=== PATIENT | male | born 1985 | race Caucasian/White ===

== ENCOUNTER 2021-04-28 10:00 | Emergency (ER) | payer BC, SELFPAY ==
--- NOTE | 2021-04-28 10:44 | RAD REPORT ---
EXAM DESCRIPTION: RAD - Chest Single View - 04/28/2021 10:33 am CLINICAL HISTORY: CHEST PAIN Chest pain. COMPARISON: Chest Single View dated 01/20/2016; CHEST PA AND LAT 2 VIEW dated 12/22/2013; CHEST SINGLE VIEW dated 01/21/2012 FINDINGS: Portable technique limits examination quality. The lungs are grossly clear. The heart is normal in size. No displaced fractures. IMPRESSION: No acute intrathoracic process suspected.
[2021-04-28 11:21] LABS: Absolute Lymphocytes (CBC) 1.3 K/uL (0.7-4.9); Lymphocytes % 16.6 % (15.3-44.8); MPV 9.6 fL (7.6-11.3); RBC Red Blood Cell Count 4.62 M/uL (4.33-5.43)
[2021-04-28 11:33] LABS: Protime INR 1.18
[2021-04-28 11:51] LABS: ALT/SGPT 33 U/L (12-78); Albumin 3.6 g/dL (3.4-5.0); Alkaline Phosphatase 94 U/L (45-117); BUN Blood Urea Nitrogen 12 mg/dL (7-18); Bicarbonate 26 mmol/L (21-32); Bilirubin Total 0.6 mg/dL (0.2-1.0); Glucose Level 101 mg/dL (74-106); NT PRO-BNP 32 pg/mL (<125); Protein, Total 7.6 g/dL (6.4-8.2); Sodium Level 136 mmol/L (136-145)
[2021-04-28 12:00] LABS: AST/SGOT 26 U/L (15-37); Bilirubin Direct < 0.1 mg/dL (0-0.2); Magnesium 2.3 mg/dL (1.8-2.4); Potassium 4.4 mmol/L (3.5-5.1); Troponin High Sensitivity < 3.00 pg/mL (<58.9)
--- NOTE | 2021-04-28 12:10 | EDPHYS ---
Physician Documentation [facility] Name: Tyrell Torres Age: 35 yrs Sex: Male : 1985 Arrival Date: 04/28/2021 Time: 10:03 Bed 14 Private MD: ED Physician Stanley Fierro HPI: 04/28 10:26 This 35 yrs old Male presents to ER via Ambulatory with complaints of Chest Pain. kb 10:26 The patient or guardian reports chest pain that is located primarily in the anterior kb chest wall, left. The pain does not radiate. Associated signs and symptoms: The patient has no apparent associated signs or symptoms. The chest pain is described as aching. Duration: The patient or guardian reports a single episode, that is still ongoing. Modifying factors: The symptoms are alleviated by nothing. the symptoms are aggravated by nothing. Severity of pain: At its worst the pain was moderate in the emergency department the pain is unchanged. The patient has not experienced similar symptoms in the past. The patient has not recently seen a physician. Pt reports chest pain that began while at work at approx 0730. States pain is to left chest. Denies previous episodes. . Historical: - Allergies: 10:11 No Known Allergies; ab2 - Home Meds: 10:11 lisinopril 5 mg Oral tab 1 tab once daily [Active]; buspirone 5 mg Oral tab 1 tab 2 ab2 times per day [Active]; - PMHx: 10:11 Hypertensive disorder; Anxiety; ab2 - PSHx: 10:11 Appendectomy; ab2 - Immunization history:: Adult Immunizations up to date. - Social history:: Smoking status: Patient denies any tobacco usage or history of. ROS: 10:25 Constitutional: Negative for fever, chills, and weight loss. kb 10:25 Cardiovascular: Positive for chest pain, Negative for edema, orthopnea, palpitations, paroxysmal nocturnal dyspnea. 10:25 All other systems are negative. Exam: 10:23 Constitutional: This is a well developed, well nourished patient who is awake, alert, kb and in no acute distress. Head/Face: Normocephalic, atraumatic. ENT: Moist Mucous membranes Cardiovascular: Regular rate and rhythm with a normal S1 and S2. No gallops, murmurs, or rubs. No pulse deficits. Respiratory: Respirations even and unlabored. No increased work of breathing. Talking in full sentences Skin: Warm, dry with normal turgor. Normal color. MS/ Extremity: Pulses equal, no cyanosis. Neurovascular intact. Full, normal range of motion. Neuro: Awake and alert, GCS 15, oriented to person, place, time, and situation. Moves all extremities. Normal gait. Psych: Awake, alert, with orientation to person, place and time. Behavior, mood, and affect are within normal limits. 10:23 ECG was reviewed by the Attending Physician. Vital Signs: 10:08 BP 138 / 93; Pulse 85; Resp 22; Temp 98.0(O); Pulse Ox 100% on R/A; Weight 108.86 kg; ab2 Height 6 ft. 0 in. (182.88 cm); Pain 3/10; 10:15 BP 127 / 73; Pulse 83; Resp 16 S; Pulse Ox 99% on R/A; Pain 2/10; jg9 11:30 BP 128 / 84; Pulse 88; Resp 20 S; Pulse Ox 98% ; Pain 2/10; jg9 12:00 BP 129 / 75 (art line/); Pulse 73; Resp 20 S; Pulse Ox 98% on R/A; jg9 10:08 Body Mass Index 32.55 (108.86 kg, 182.88 cm) ab2 MDM: 10:11 Patient medically screened. 10:24 Data reviewed: vital signs, nurses notes. Data interpreted: Pulse oximetry: on room air kb is 100 %. Interpretation: normal. 12:08 Counseling: I had a detailed discussion with the patient and/or guardian regarding: the kb historical points, exam findings, and any diagnostic results supporting the discharge/admit diagnosis, lab results, radiology results, the need for outpatient follow up, a linux developer, a family practitioner, to return to the emergency department if symptoms worsen or persist or if there are any questions or concerns that arise at home. 04/28 10:11 Order name: Basic Metabolic Panel kb 04/28 10:11 Order name: CBC with Diff kb 04/28 10:11 Order name: LFT's; Complete Time: 12:07 kb 04/28 10:11 Order name: Magnesium; Complete Time: 12:07 kb 04/28 10:11 Order name: NT PRO-BNP; Complete Time: 12:07 kb 04/28 10:11 Order name: PT-INR; Complete Time: 11:34 kb 04/28 10:11 Order name: Troponin HS; Complete Time: 12:07 kb 04/28 10:11 Order name: XRAY Chest (1 view); Complete Time: 10:49 kb 04/28 10:11 Order name: EKG; Complete Time: 10:12 kb 04/28 10:11 Order name: Cardiac monitoring; Complete Time: 10:21 kb 04/28 10:11 Order name: EKG - Nurse/Tech; Complete Time: 10:21 kb 04/28 10:11 Order name: Labs collected and sent; Complete Time: 10:48 kb 04/28 10:11 Order name: Basic Metabolic Panel; Complete Time: 12:07 EDMS 04/28 10:11 Order name: O2 Sat Monitoring; Complete Time: 10:21 kb EC:23 Rate is 77 beats/min. Rhythm is regular. QRS [place] is Normal. FL interval is normal at kb 112 msec. QRS interval is normal at 90 msec. QT interval is normal at 350 msec. Administered Medications: No medications were administered Disposition: 19:34 Co-signature as Attending PhysicianStanley DO I agree with the assessment and ms3 plan of care. Disposition Summary: 04/28/21 12:09 Discharge Ordered Location: Home kb Condition: Stable kb Diagnosis - Chest pain, unspecified kb Followup: kb - With: Emergency Department - When: As needed - Reason: Worsening of condition Followup: kb - With: Private Physician - When: 2 - 3 days - Reason: Recheck today's complaints, Continuance of care, Re-evaluation by your physician Discharge Instructions: - Discharge Summary Sheet kb - Nonspecific Chest Pain, Adult, [id number] kb - Form - Excuse from Work, School, or Physical Activity ld1 Forms: - Medication Reconciliation Form kb - Thank You Letter kb - Antibiotic Education kb - Prescription Opioid Use kb Signatures: Dispatcher [employer] Consuelo Aviles FNP-C FNP-Ckb Sims, Marcus, DO DO ms3 Betito Chu ab2 Corrections: (The following items were deleted from the chart) 20:08 19:34 Co-signature as Attending PhysicianConsuelo I agree with the ms3 assessment and plan of care. ms3
--- NOTE | 2021-04-28 12:10 | ER ---
Nurse's Notes [facility] Name: Tyrell Torres Age: 35 yrs Sex: Male : 1985 Arrival Date: 04/28/2021 Time: 10:03 Bed 14 Private MD: Diagnosis: Chest pain, unspecified Presentation: 04/28 10:08 Chief complaint: Patient states: Pt c/o chest pain on the left side that radiates under ab2 left breast. Pt states pain began at work around 0730 this morning. Chief complaint:. Coronavirus screen: Vaccine status: Patient reports being unvaccinated. Client denies travel out of the [place] in the last 14 days. At this time, the client does not indicate any symptoms associated with coronavirus-19. Ebola Screen: Patient negative for fever greater than or equal to 101.5 degrees Fahrenheit, and additional compatible Ebola Virus Disease symptoms Patient denies exposure to infectious person. Patient denies travel to an Ebola-affected area in the 21 days before illness onset. No symptoms or risks identified at this time. Initial Sepsis Screen: Does the patient meet any 2 criteria? No. Patient's initial sepsis screen is negative. Does the patient have a suspected source of infection? No. Patient's initial sepsis screen is negative. Risk Assessment: Do you want to hurt yourself or someone else? Patient reports no desire to harm self or others. Onset of symptoms is unknown. 10:08 Method Of Arrival: Ambulatory ab2 10:08 Acuity: JULIUS 3 ab2 Triage Assessment: 10:12 General: Appears in no apparent distress. comfortable, Behavior is calm, cooperative, ab2 appropriate for age. Pain: Complains of pain in left clavicle, anterior aspect of left upper chest and left breast Pain radiates to left breast. Cardiovascular: Reports chest pain. Historical: - Allergies: 10:11 No Known Allergies; ab2 - Home Meds: 10:11 lisinopril 5 mg Oral tab 1 tab once daily [Active]; buspirone 5 mg Oral tab 1 tab 2 ab2 times per day [Active]; - PMHx: 10:11 Hypertensive disorder; Anxiety; ab2 - PSHx: 10:11 Appendectomy; ab2 - Immunization history:: Adult Immunizations up to date. - Social history:: Smoking status: Patient denies any tobacco usage or history of. Screenin:49 Abuse screen: Denies threats or abuse. Denies injuries from another. Nutritional jg9 screening: On weight loss diet. Tuberculosis screening: No symptoms or risk factors identified. Fall Risk None identified. Assessment: 10:10 Pain: Complains of pain in chest Pain began 4 hours ago. jg9 11:38 Reassessment: No changes from previously documented assessment. Pain: Complains of pain jg9 in chest Pain currently is 2 out of 10 on a pain scale. Vital Signs: 10:08 BP 138 / 93; Pulse 85; Resp 22; Temp 98.0(O); Pulse Ox 100% on R/A; Weight 108.86 kg; ab2 Height 6 ft. 0 in. (182.88 cm); Pain 3/10; 10:15 BP 127 / 73; Pulse 83; Resp 16 S; Pulse Ox 99% on R/A; Pain 2/10; jg9 11:30 BP 128 / 84; Pulse 88; Resp 20 S; Pulse Ox 98% ; Pain 2/10; jg9 12:00 BP 129 / 75 (art line/); Pulse 73; Resp 20 S; Pulse Ox 98% on R/A; jg9 10:08 Body Mass Index 32.55 (108.86 kg, 182.88 cm) ab2 ED Course: 10:03 Patient arrived in ED. kz 10:11 Consuelo Quigley FNP-C is [facility]. kb 10:11 Stanley Fierro DO is Attending Physician. kb 10:11 Triage completed. ab2 10:16 Cindy Aguilar, RN is Primary Nurse. jg9 10:20 Missed attempt(s): 20 gauge in right antecubital area. jg9 10:33 XRAY Chest (1 view) In Process Unspecified. EDMS 10:48 Basic Metabolic Panel Sent. jg9 10:50 Patient maintains SpO2 saturation greater than 95% on room air. jg9 10:50 Arm band placed on left wrist. jg9 10:50 Patient has correct armband on for positive identification. Bed in low position. Call jg9 light in reach. Side rails up X 1. school lunch monitor on. 11:11 Inserted saline lock: 20 gauge in right hand, using aseptic technique. Blood collected. jg9 11:38 No apparent distress. standing in room due to be being so uncomfortable. jg9 11:44 patient reports pain just to the left of iv site not near insertion that was mad worse jg9 by bp cuff-patient wants line out-this nurse advised him that he may still need it and if so would he be ok with my sticking him again-he was ok with that. 12:18 No provider procedures requiring assistance completed. jg9 Administered Medications: No medications were administered Outcome: 12:09 Discharge ordered by . meagan 12:18 Discharged to home ambulatory. jg9 12:18 Condition: stable 12:18 Discharge instructions given to patient, Instructed on discharge instructions, follow up and referral plans. Demonstrated understanding of instructions, follow-up care. 12:29 Patient left the ED. jg9 Signatures: Dispatcher [employer] EDConsuelo Drummond, RUSSIAN LANGUAGE INSTRUCTOR-C RUSSIAN LANGUAGE INSTRUCTOR-Cindy Hays, RN RN jg9 Betito Chu Kelly kz Corrections: (The following items were deleted from the chart) 10:51 10:50 Missed attempt(s): 20 gauge in right antecubital area. jg9 jg9
[2021-04-28 12:32] LABS: Blood Morphology Comment NOT SEEN (NOT SEEN); Platelet Estimate ADEQ; White Blood Cell Scan OK (OK)
[2021-04-28 12:54] VITALS: TEMP 98
[2021-04-28 12:57] VITALS: O2SAT 98
[2021-04-28 12:58] VITALS: BP 129/75
--- NOTE | 2021-04-29 13:12 | EKG ---
Test Date: 2021-04-28 Test Time: 10:21:46 Rivet Heater: MEASUREMENT RESULTS: Intervals: Rate: 77 AL: 112 QRSD: 90 QT: 350 QTc: 396 Stacy: P: 28 AL: 112 QRS: 7 T: 39 INTERPRETIVE STATEMENTS: Normal sinus rhythm Normal ECG Compared to ECG 01/20/2016 07:51:50 Left ventricular hypertrophy no longer present Electronically Signed On 04-29-21 13:08:23 PIN FEATHER MACHINE OPERATOR by Robert Urbina
== END 2021-04-28 12:29 | disposition home or self-care (01) ==
LOC: ER 10:00
DX: R07.9 Chest pain, unspecified (principal); I10 Essential (primary) hypertension; F41.9 Anxiety disorder, unspecified
CPT/HCPCS: 36415; 71045; 80048; 80076; 83735; 83880; 84484; 85025; 85610; 93005; 99285

== ENCOUNTER 2021-08-30 21:26 | Emergency (ER) | payer SELFPAY ==
[2021-08-30] MEDS ORDERED: IBUPROFEN 400 MG TAB ONE (23:19)
--- NOTE | 2021-08-31 00:15 | EDPHYS ---
Physician Documentation [facility] Name: Tyrell Torres Age: 36 yrs Sex: Male : 1985 Arrival Date: 08/30/2021 Time: 21:30 Bed 28 Private MD: ED Physician Suraj Caban HPI: 08/30 23:00 This 36 yrs old Male presents to ER via Ambulatory with complaints of Knee Pain. cp 23:00 The patient presents with pain, that is acute, swelling, tenderness. The complaints cp affect the lateral aspect upper left knee. Context: resulted from an unknown cause, the patient can fully bear weight, the patient is able to ambulate, with mild difficulty, Problem is a result from a previous injury: No. Onset: The symptoms/episode began/occurred today. Associated signs and symptoms: The patient has no apparent associated signs or symptoms. Historical: - Allergies: 21:42 No Known Allergies; eh3 - Home Meds: 21:39 lisinopril 10 mg oral tab 1 tab once daily for hypertension [Active]; eh3 21:42 buspirone 5 mg Oral tab 1 tab 2 times per day [Active]; eh3 - PMHx: 21:42 Hypertensive disorder; Anxiety; eh3 - PSHx: 21:42 Appendectomy; eh3 - Immunization history:: Adult Immunizations up to date, Client reports having NOT received the Covid vaccine. - Social history:: Smoking status: Patient denies any tobacco usage or history of. Patient/guardian denies using alcohol, street drugs, tobacco products. ROS: 23:10 MS/extremity: Positive for pain, swelling, tenderness, of the lateral aspect left upper cp knee. 23:10 Constitutional: Negative for body aches, chills, fever, poor PO intake. cp 23:10 Eyes: Negative for injury, pain, redness, and discharge. cp 23:10 Neck: Negative for pain with movement, pain at rest. 23:10 Cardiovascular: Negative for chest pain, palpitations. 23:10 Respiratory: Negative for cough, shortness of breath, wheezing. 23:10 Abdomen/GI: Negative for abdominal pain. 23:10 Back: Negative for pain at rest, pain with movement. 23:10 All other systems are negative. Exam: 23:15 Constitutional: The patient appears in no acute distress, alert, awake, non-toxic, well cp developed, well nourished, obese. 23:15 Head/Face: Normocephalic, atraumatic. cp 23:15 Neck: ROM/movement: is normal, is supple, without pain, no range of motions limitations. 23:15 Back: pain, is absent, ROM is normal. 23:15 Musculoskeletal/extremity: Extremities: noted in the left knee: mild swelling and tenderness noted popliteal and upper lateral left knee, ROM: full active range of motion, in the left knee, Perfusion: the extremity is normally perfused throughout, Sensation intact. Vital Signs: 21:32 BP 148 / 91; Pulse 86; Resp 18; Temp 98.3; Pulse Ox 100% on R/A; Weight 157.85 kg; eh3 Height 6 ft. 0 in. (182.88 cm); Pain 08/28; 08/31 00:21 BP 139 / 88; Pulse 82; Resp 17; Pulse Ox 100% on R/A; sm5 08/30 21:32 Body Mass Index 47.20 (157.85 kg, 182.88 cm) 3 MDM: 08/30 22:43 Patient medically screened. cp 08/31 00:15 Data reviewed: vital signs, nurses notes, radiologic studies, plain films, ultrasound. cp 00:15 Counseling: I had a detailed discussion with the patient and/or guardian regarding: the cp historical points, exam findings, and any diagnostic results supporting the discharge/admit diagnosis, radiology results, the need for outpatient follow up, a orthopedic surgeon, to return to the emergency department if symptoms worsen or persist or if there are any questions or concerns that arise at home. 08/30 22:49 Order name: XRAY Knee LEFT 3 view cp 08/30 22:49 Order name: US Extremity Venous Unilateral Ltd cp 08/31 00:14 Order name: Alonzo wrap-joint; Complete Time: 00:19 cp Administered Medications: 08/30 23:14 Drug: Ibuprofen 800 mg Route: PO; bb 08/31 00:22 Follow up: Response: No adverse reaction [facility] Disposition Summary: 08/31/21 00:15 Discharge Ordered Location: Home cp Problem: new cp Symptoms: have improved cp Condition: Stable cp Diagnosis - Pain in left knee cp Followup: cp - With: Private Physician - When: 2 - 3 days - Reason: Worsening of condition Discharge Instructions: - Discharge Summary Sheet cp - Elastic Bandage and RICE Therapy cp - Acute Knee Pain, Adult cp Forms: - Medication Reconciliation Form cp - Thank You Letter cp - Antibiotic Education cp - Prescription Opioid Use cp - Work release form 5 Prescriptions: - Ibuprofen 800 mg Oral Tablet - take 1 tablet by ORAL route every 8 hours As needed take with food; 30 tablet; cp Refills: 0, Product Selection Permitted Signatures: Dispatcher [employer] Stephanie Gould RN RN Kranthi Combs PA PA cp Hall, Erin [facility] Dominique Mariano RN 5 Corrections: (The following items were deleted from the chart) 08/30 21:41 21:39 PMHx: Hypertensive disorder; [place] [id number] 21:41 21:39 PMHx: Anxiety; [place] [id number] 21:41 21:39 PSHx: Appendectomy; [place] [id number] 21:44 21:42 PMHx: None; [place] [id number]
--- NOTE | 2021-08-31 00:15 | ER ---
Nurse's Notes [facility] Name: Tyerll Torres Age: 36 yrs Sex: Male : 1985 Arrival Date: 08/30/2021 Time: 21:30 Bed 28 Private MD: Diagnosis: Pain in left knee Presentation: 08/30 21:32 Chief complaint: Patient states: left knee swollen, radiating pain down to foot. Onset eh3 at 1999, unaware of cause. Coronavirus screen: Vaccine status: Patient reports being unvaccinated. Ebola Screen: No symptoms or risks identified at this time. Initial Sepsis Screen: Does the patient meet any 2 criteria? No. Patient's initial sepsis screen is negative. Does the patient have a suspected source of infection? No. Patient's initial sepsis screen is negative. Risk Assessment: Do you want to hurt yourself or someone else? Patient reports no desire to harm self or others. Onset of symptoms was August 30, 2021 at 20:00. 21:32 Method Of Arrival: Ambulatory eh3 21:32 Acuity: JULIUS 3 eh3 Triage Assessment: 21:41 General: Appears in no apparent distress. comfortable, Behavior is calm, cooperative, eh3 appropriate for age. Pain: Complains of pain in left knee, left martinez, anterior aspect of left ankle and dorsum of left foot Pain radiates to left leg. Historical: - Allergies: 21:42 No Known Allergies; eh3 - Home Meds: 21:39 lisinopril 10 mg oral tab 1 tab once daily for hypertension [Active]; eh3 21:42 buspirone 5 mg Oral tab 1 tab 2 times per day [Active]; eh3 - PMHx: 21:42 Hypertensive disorder; Anxiety; eh3 - PSHx: 21:42 Appendectomy; eh3 - Immunization history:: Adult Immunizations up to date, Client reports having NOT received the Covid vaccine. - Social history:: Smoking status: Patient denies any tobacco usage or history of. Patient/guardian denies using alcohol, street drugs, tobacco products. Screenin:08 Abuse screen: Denies threats or abuse. Nutritional screening: No deficits noted. bb Tuberculosis screening: No symptoms or risk factors identified. Fall Risk None identified. Assessment: 22:08 Reassessment: No changes from previously documented assessment. Patient is alert, bb oriented x 3, equal unlabored respirations, skin warm/dry/pink. 08/31 00:21 Reassessment: Patient and/or family updated on plan of care and expected duration. Pain sm5 level reassessed. Vital Signs: 08/30 21:32 BP 148 / 91; Pulse 86; Resp 18; Temp 98.3; Pulse Ox 100% on R/A; Weight 157.85 kg; 3 Height 6 ft. 0 in. (182.88 cm); Pain 7/10; 08/31 00:21 BP 139 / 88; Pulse 82; Resp 17; Pulse Ox 100% on R/A; sm5 08/30 21:32 Body Mass Index 47.20 (157.85 kg, 182.88 cm) [facility] ED Course: 08/30 21:30 Patient arrived in ED. ja2 21:38 Triage completed. 3 21:41 Arm band placed on left wrist. 3 22:08 Kranthi Green PA is PHCP. cp 22:08 Suraj Caban MD is Attending Physician. cp 22:08 Patient has correct armband on for positive identification. Bed in low position. Call bb light in reach. 22:09 Stephanie Artis RN is Primary Nurse. bb 23:12 XRAY Knee LEFT 3 view In Process Unspecified. EDMS 08/31 00:02 US Extremity Venous Unilateral Ltd In Process Unspecified. EDMS 00:21 No provider procedures requiring assistance completed. Patient did not have IV access sm5 during this emergency room visit. Alonzo wrap to left knee. Administered Medications: 08/30 23:14 Drug: Ibuprofen 800 mg Route: PO; bb 08/31 00:22 Follow up: Response: No adverse reaction sm5 Medication: 00:22 VIS not applicable for this client. sm5 Outcome: 00:15 Discharge ordered by MD. cp 00:22 Discharged to home ambulatory, with significant other. sm5 00:22 Condition: stable 00:22 Discharge instructions given to patient, significant other, Instructed on discharge instructions, follow up and referral plans. medication usage, Demonstrated understanding of instructions, follow-up care, medications, Prescriptions given X 1. 00:22 Patient left the ED. sm5 Signatures: Dispatcher [employer] [facility] Stephanie Artis RN RN bb Page, Corey, PA PA cp Alexander, Jessica [facility] García, Dominique, RN RN sm5 Susanna Kc eh3 Corrections: (The following items were deleted from the chart) 08/30 21: 21:39 PMHx: Hypertensive disorder; eh3 eh3 21:39 PMHx: Anxiety; eh3 eh3 21:39 PSHx: Appendectomy; eh3 eh3 21:42 PMHx: None; eh3 eh3
[2021-08-31 00:35] VITALS: TEMP 98.3; O2SAT 100
[2021-08-31 00:38] VITALS: BP 139/88
--- NOTE | 2021-08-31 11:29 | RAD REPORT ---
EXAM DESCRIPTION: US - Extremity Venous Uni Ltd - 08/31/2021 1:54 am CLINICAL HISTORY: Pain. COMPARISON: None. TECHNIQUE: Grayscale, color Doppler, duplex Doppler, spectral Doppler images and analysis with compr ession and augmentation of left lower extremity veins. FINDINGS: Left common femoral, greater saphenous, femoral, deep (profunda) femoral, popliteal, poste rior tibial veins unremarkable without evidence of clot. IMPRESSION: No sonographic evidence of left lower extremity DVT. Electronically signed by: Mehdi Scales MD 08/31/2021 12:26 AM CDT Due to temporary technical issues with the PACS/Fluency reporting system, reports are being signed by the in house radiologists without review as a courtesy to insure prompt reporting. The interpreting radiologist is fully responsible for the content of the report.
--- NOTE | 2021-08-31 12:21 | RAD REPORT ---
EXAM DESCRIPTION: RAD - Knee Left 3 View - 08/30/2021 11:10 pm CLINICAL HISTORY: PAIN. COMPARISON: None. TECHNIQUE: Three views of the left knee: AP, oblique, and lateral radiographs. FINDINGS: No acute osseous abnormality is identified. Alignment is maintained. Tiny tricompartmental marginal osteophytes. No evidence of suprapatellar joint effusion. IMPRESSION: No acute osseous abnormality identified. Electronically signed by: Dolly Chan MD 08/30/2021 11:24 PM CDT Due to temporary technical issues with the PACS/Fluency reporting system, reports are being signed by the in house radiologists without review as a courtesy to insure prompt reporting. The interpreting radiologist is fully responsible for the content of the report.
== END 2021-08-31 00:22 | disposition home or self-care (01) ==
LOC: ER 21:26
DX: M25.562 Pain in left knee (principal); I10 Essential (primary) hypertension; F41.9 Anxiety disorder, unspecified
CPT/HCPCS: 93971; 99284

== ENCOUNTER 2023-01-31 08:11 | Emergency (ER) | payer SELFPAY ==
[2023-01-31 09:31] LABS: SARS-COV-2 RT PCR NEGATIVE (NEGATIVE)
[2023-01-31] MEDS ORDERED: ALBUTEROL 2.5 MG/3 ML NEB SOL ONE (09:35)
--- NOTE | 2023-01-31 11:12 | EDPHYS ---
Physician Documentation [facility] Name: Tyrell Torres Age: 37 yrs Sex: Male : 1985 Arrival Date: 01/31/2023 Time: 08:11 Bed 2 Private MD: ED Physician Stanley Fierro HPI: 01/31 09:07 This 37 yrs old Male presents to ER via Ambulatory with complaints of Flu Symptoms, ms3 Headache - Dizziness, Breathing Difficulty. 09:07 37-year-old male with past medical history of anxiety, hypertension, asthma presents to [facility] the emergency department for 10 days of nasal congestion, cough. Patient states he is currently out of his nebulized albuterol. Patient denies fevers, chills. Patient states he took Mucinex, cold/flu medications without relief. Patient endorses fatigue. Historical: - Allergies: 08:41 No Known Allergies; hb - PMHx: 08:41 Anxiety; Hypertensive disorder; hb 08:41 Asthma; hb - PSHx: 08:41 Appendectomy; hb - Immunization history:: Adult Immunizations up to date. - Social history:: Smoking status: Patient denies any tobacco usage or history of. ROS: 09:07 Constitutional: Negative for fever, and chills. Neck: Negative for injury, pain, and ms3 swelling, Cardiovascular: Negative for chest pain, and palpitations. Abdomen/GI: Negative for abdominal pain, nausea, vomiting, diarrhea, and constipation, Skin: Negative for injury, rash, and discoloration, 09:07 Respiratory: Positive for shortness of breath, 09:07 All other systems are negative, Exam: 09:07 Constitutional: This is a well developed, well nourished patient who is awake, alert, ms3 and in no acute distress. Head/Face: Normocephalic, atraumatic. Cardiovascular: Regular rate and rhythm with a normal S1 and S2. No gallops, murmurs, or rubs. Normal PMI, no JVD. No pulse deficits. Abdomen/GI: Soft, non-tender, with normal bowel sounds. No distension or tympany. No guarding or rebound. No evidence of tenderness throughout. Skin: Warm, dry with normal turgor. Normal color with no rashes, no lesions, and no evidence of cellulitis. 09:07 Respiratory: the patient does not display signs of respiratory distress, Respirations: normal, Breath sounds: wheezing: expiratory that is mild, Vital Signs: 08:38 BP 170 / 105; Pulse 82; Resp 17; Temp 97.8(TE); Pulse Ox 100% on R/A; Weight 156.94 kg; hb Height 6 ft. 0 in. ; Pain 5/10; 10:05 BP 148 / 85; Pulse 84; Resp 13; Pulse Ox 99% on R/A; ld1 08:38 Body Mass Index 46.93 (156.94 kg, 182.88 cm) hb 08:38 Pain Scale: Adult hb MDM: 09:07 Differential diagnosis: Flu vs COVID vs Asthma exacerbation. ms3 10:10 Patient medically screened. ms3 11:11 Data reviewed: vital signs, nurses notes, lab test result(s), and as a result, I will ms3 discharge patient. I considered the following discharge prescriptions or medication management in the emergency department Medications were administered in the Emergency Department. See MAR. Counseling: I had a detailed discussion with the patient and/or guardian regarding the historical points, exam findings, and any diagnostic results supporting the discharge/admit diagnosis, lab results, the need for outpatient follow up, to return to the emergency department if symptoms worsen or persist or if there are any questions or concerns that arise at home. Response to treatment: the patient's symptoms have markedly improved after treatment, and as a result, I will discharge patient. ED course: Discussed labs with patient. Patient to follow-up with primary care physician to 3 days. Patient understands agrees with plan. All questions were answered. Return precautions discussed include worsening symptoms, or any other concerns. On reevaluation patient's symptoms improved, patient is alert and oriented x 4, no apparent distress, nontoxic-appearing, ambulatory in emergency department.. 01/31 08:24 Order name: COVID-19/FLU A+B/RSV; Complete Time: 11:01 ms3 Administered Medications: 09:23 Drug: Albuterol Inhalation 2.5 mg Inhalation once Route: Inhalation; ld1 Disposition Summary: 01/31/23 11:11 Discharge Ordered Notes: Location: Home ms3 Condition: Stable ms3 Diagnosis - Influenza B ms3 - Shortness of breath ms3 Followup: ms3 - With: Fabiano Ellis DO - When: 2 - 3 days - Reason: Recheck today's complaints Discharge Instructions: - Discharge Summary Sheet ms3 - Shortness of Breath, Adult ms3 - Influenza, Adult, [id number] ms3 Forms: - Medication Reconciliation Form ms3 - Thank You Letter ms3 - Antibiotic Education ms3 - Prescription Opioid Use ms3 - Patient Portal Instructions ms3 - Leadership Thank You Letter ms3 - Work release form ld1 Prescriptions: - albuterol sulfate 90 mcg/actuation Inhalation HFA Aerosol Inhaler - inhale 2 puff INHALATION route every 2 to 6 hours as needed for bronchospasm; ms3 administer via ventilator; 1 unit; Refills: 0, Product Selection Permitted - Albuterol Sulfate 2.5 mg /3 mL (0.083 %) Inhalation Solution for Nebulization - inhale 1 unit NEBULIZATION route every 8 hours As needed; 20 unit; Refills: 0, ms3 Product Selection Permitted - Prednisone 20 mg Oral Tablet - take 2 tablets ORAL route once daily for 5 days; 10 tablet; Refills: 0, Product ms3 Selection Permitted Signatures: Dispatcher [employer] Jalyn Thayer, RN DIANDRA Stanley Fierro DO DO ms3 Yumiko Fierro RN RN ld1
--- NOTE | 2023-01-31 11:12 | ER ---
Nurse's Notes [facility] Name: Tyrell Torres Age: 37 yrs Sex: Male : 1985 Arrival Date: 01/31/2023 Time: 08:11 Bed 2 Private MD: Diagnosis: Influenza B;Shortness of breath Presentation: 01/31 08:38 Chief complaint: Cough, pain with cough, SOB, chest tightness, sinus congestion, hb nausea, headache, and dizziness x 10 days, SOB worse over last 2 days. Hx of asthma, out of albuterol for neb. Coronavirus screen: Client presents with at least one sign or symptom that may indicate coronavirus-19. Provider contacted for isolation considerations. Ebola Screen: No symptoms or risks identified at this time. Initial Sepsis Screen: Does the patient meet any 2 criteria? No. Patient's initial sepsis screen is negative. Does the patient have a suspected source of infection? No. Patient's initial sepsis screen is negative. Risk Assessment: Do you want to hurt yourself or someone else? Patient reports no desire to harm self or others. Onset of symptoms was January 21, 2023. 08:38 Method Of Arrival: Ambulatory hb 08:38 Acuity: JULIUS 3 hb Historical: - Allergies: 08:41 No Known Allergies; hb - PMHx: 08:41 Anxiety; Hypertensive disorder; hb 08:41 Asthma; hb - PSHx: 08:41 Appendectomy; hb - Immunization history:: Adult Immunizations up to date. - Social history:: Smoking status: Patient denies any tobacco usage or history of. Screenin:[address] [facility] ED Fall Risk Assessment (Adult) History of falling in the last 3 months, ld1 including since admission No falls in past 3 months (0 pts). Abuse screen: Denies threats or abuse. Denies injuries from another. Nutritional screening: No deficits noted. Tuberculosis screening: No symptoms or risk factors identified. Assessment: 10:05 General: Appears in no apparent distress. comfortable, Behavior is calm, cooperative, ld1 appropriate for age. Pain: Denies pain. Neuro: Level of Consciousness is awake, alert, obeys commands, Oriented to person, place, time, situation. Cardiovascular: Capillary refill < 3 seconds Patient's skin is warm and dry. Rhythm is sinus rhythm. Respiratory: Airway is patent Respiratory effort is even, unlabored, Breath sounds are clear bilaterally. GI: Abdomen is round non-distended. : No signs and/or symptoms were reported regarding the genitourinary system. EENT: No signs and/or symptoms were reported regarding the EENT system. Derm: No signs and/or symptoms reported regarding the dermatologic system. Musculoskeletal: No signs and/or symptoms reported regarding the musculoskeletal system. Vital Signs: 08:38 BP 170 / 105; Pulse 82; Resp 17; Temp 97.8(TE); Pulse Ox 100% on R/A; Weight 156.94 kg; hb Height 6 ft. 0 in. ; Pain 5/10; 10:05 BP 148 / 85; Pulse 84; Resp 13; Pulse Ox 99% on R/A; ld1 08:38 Body Mass Index 46.93 (156.94 kg, 182.88 cm) hb 08:38 Pain Scale: Adult hb ED Course: 08:16 Patient arrived in ED. mg5 08:24 Stanley Fierro DO is Attending Physician. ms3 08:41 Triage completed. hb 08:42 Arm band placed on. hb 08:44 COVID-19/FLU A+B/RSV Sent. ld1 09:23 Yumiko Fierro, RN is Primary Nurse. ld1 09:23 COVID-19/FLU A+B/RSV Sent. ld1 10:05 Patient has correct armband on for positive identification. Placed in gown. Bed in low ld1 position. Call light in reach. Side rails up X2. engine cowling installer on. Pulse ox on. NIBP on. Door closed. Noise minimized. Warm blanket given. 10:05 No provider procedures requiring assistance completed. ld1 11:11 Fabiano Ellis DO is Referral Physician. ms3 11:16 Patient did not have IV access during this emergency room visit. ld1 Administered Medications: 09:23 Drug: Albuterol Inhalation 2.5 mg Inhalation once Route: Inhalation; ld1 Medication: 10:05 VIS not applicable for this client. ld1 Outcome: 11:11 Discharge ordered by . ms3 11:16 Discharged to home ambulatory, ld1 11:16 Condition: stable 11:16 Discharge instructions given to patient, family, Instructed on discharge instructions, follow up and referral plans. medication usage, Demonstrated understanding of instructions, follow-up care, medications, Prescriptions given X 3, 11:16 Patient left the ED. ld1 Signatures: Jalyn Jose, DIANDRA RN Stanley Tony DO DO ms3 Yumiko Fierro RN RN ld1 Jacqueline Moraes mg5
[2023-01-31 12:04] VITALS: BP 148/85; TEMP 97.8; O2SAT 99
== END 2023-01-31 11:16 | disposition home or self-care (01) ==
LOC: ER 08:11
DX: J10.1 Influenza due to other identified influenza virus with other respiratory manifestations (principal); Z11.52 Encounter for screening for COVID-19
CPT/HCPCS: 0241U; J7613

== ENCOUNTER 2023-10-09 14:32 | Emergency (ER) | payer SELFPAY ==
[2023-10-09 15:11] LABS: Absolute Basophils 0.1 K/uL (0-0.5); Absolute Eosinophils 0.3 K/uL (0-0.5); Absolute Lymphocytes (CBC) 1.7 K/uL (0.7-4.9); Absolute Monocytes 0.6 K/uL (0.1-1.3); Absolute Neutrophil 6.2 K/uL (1.8-8.0); Basophils % 1.4 % (0-1.3); Eosinophils % 3.6 % (0-4.4); Hematocrit 40.3 % (39.6-49.0); Hemoglobin 13.1 g/dL (13.6-17.9); Lymphocytes % 19.2 % (15.3-44.8); MCH 27.1 pg (27.0-35.0); MCHC 32.5 g/dL (32.0-36.0); MCV 83.4 fL (80-100); Monocytes % 6.8 % (3.3-12.3); Platelets 199 thou/uL (152-406); RBC Red Blood Cell Count 4.84 M/uL (4.33-5.43); Red Cell Distribution Width 14.8 % (12.1-15.2)
[2023-10-09 15:30] LABS: Troponin High Sensitivity 4.9 pg/mL (<58.9)
--- NOTE | 2023-10-09 16:38 | RAD REPORT ---
EXAM DESCRIPTION: [place] Single View10/09/2023 3:33 pm CLINICAL HISTORY: CHEST PAIN COMPARISON: Chest Single View dated 04/28/2021; Chest Single View dated 01/20/2016; CHEST PA AND LAT 2 VIEW dated 12/22/2013; CHEST SINGLE VIEW dated 01/21/2012 TECHNIQUE: Portable AP view of the chest. FINDINGS: Decreased penetration somewhat limits evaluation. The lungs are clear. No pneumothorax or effusion. The cardiomediastinal contours are unremarkable. IMPRESSION: No acute cardiopulmonary process.
--- NOTE | 2023-10-09 17:54 | ER ---
Nurse's Notes [facility] Name: Tyrell Torres Age: 38 yrs Sex: Male : 1985 Arrival Date: 10/09/2023 Time: 14:32 Bed 19 Private MD: Diagnosis: Chest pain, unspecified Presentation: 10/08 14:41 Chief complaint:. Coronavirus screen: Client denies travel out of the [place] in the last db 14 days. At this time, the client does not indicate any symptoms associated with coronavirus-19. Ebola Screen: Patient negative for fever greater than or equal to 101.5 degrees Fahrenheit, and additional compatible Ebola Virus Disease symptoms Patient denies exposure to infectious person. Patient denies travel to an Ebola-affected area in the 21 days before illness onset. No symptoms or risks identified at this time. Initial Sepsis Screen: Does the patient meet any 2 criteria? No. Patient's initial sepsis screen is negative. Does the patient have a suspected source of infection? No. Patient's initial sepsis screen is negative. Risk Assessment: Do you want to hurt yourself or someone else? Patient reports no desire to harm self or others. Onset of symptoms was October 09, 2023. 14:41 Method Of Arrival: Ambulatory db 14:41 Acuity: JULIUS 2 db 14:41 Chief complaint: Patient states: CHEST PALPATIONS THIS AM AFTER EATING. STATES THEN db STARTED WITH CHEST PAIN WHILE SITTING. HX OF HAVING TO WEAR A HEART MONITOR AND HEART ECHO THAT WENT WELL. Triage Assessment: 14:41 General: Appears in no apparent distress. comfortable, Behavior is calm, cooperative. db Pain: Complains of pain in chest Pain currently is 0 out of 10 on a pain scale. Neuro: Level of Consciousness is awake, alert, obeys commands, Oriented to person, place, time, situation. Cardiovascular: Reports chest pain. Cardiovascular: Capillary refill < 3 seconds Patient's skin is warm and dry. Respiratory: Airway is patent Respiratory effort is even, unlabored, Respiratory pattern is regular, symmetrical. Historical: - Allergies: 14:43 No Known Allergies; db - PMHx: 14:43 Anxiety; Hypertensive disorder; Asthma; db - PSHx: 14:43 Appendectomy; db - Immunization history:: Adult Immunizations unknown. - Infectious Disease History:: Denies. - Social history:: Smoking status: Patient denies any tobacco usage or history of. Screenin:42 [facility] ED Fall Risk Assessment (Adult) History of falling in the last 3 months, ph including since admission No falls in past 3 months (0 pts) Confusion or Disorientation No (0 pts) Intoxicated or Sedated No (0 pts) Impaired Gait No (0 pts) Mobility Assist Device Used No (0 pt) Altered Elimination No (0 pt) Score/Fall Risk Level 0 - 2 = Low Risk Oriented to surroundings, Maintained a safe environment, Hourly rounding (assess needs \T\ fall precautionary measures) done. Abuse screen: Denies threats or abuse. Denies injuries from another. Nutritional screening: No deficits noted. Tuberculosis screening: No symptoms or risk factors identified. Assessment: 17:44 General: Appears in no apparent distress. comfortable, well groomed, Behavior is calm, ph cooperative, appropriate for age. Pain: Denies pain. Complains of pain in chest Pain does not radiate. Pain began this morning. Neuro: Level of Consciousness is awake, alert, obeys commands, Oriented to person, place, time, situation. Cardiovascular: Capillary refill < 3 seconds in bilateral fingers Patient's skin is warm and dry. Respiratory: Airway is patent Respiratory effort is even, unlabored, Respiratory pattern is regular, symmetrical. Derm: Skin is pink, warm \T\ dry. Vital Signs: 14:41 BP 195 / 110; Pulse 81; Resp 18; Temp 98; Pulse Ox 99% on R/A; Weight 145.15 kg; Height db 6 ft. 0 in. ; 17:32 BP 153 / 91; ec2 17:43 BP 152 / 93; Pulse 68; Resp 18; Temp 97.9; Pulse Ox 99% on R/A; ph 14:41 Body Mass Index 43.40 (145.15 kg, 182.88 cm) db ED Course: 14:38 Patient arrived in ED. mg5 14:38 Cesar Webb MD is Attending Physician. ec2 14:43 Triage completed. db 14:45 Arm band placed on Patient placed in an exam room. db 15:05 Missed attempt(s): 20 gauge in right antecubital area. Bleeding controlled, band aid db applied, catheter tip intact. 15:05 Initial lab(s) drawn, by me, sent to lab. db 15:12 Inserted saline lock: 22 gauge in left antecubital area, using aseptic technique. db Flushed with 10 mL NS. 15:35 XRAY Chest (1 view) In Process Unspecified. EDMS 16:41 Janina Kc, RN is Primary Nurse. ph 16:42 Patient placed in an exam room, on a stretcher. ll1 16:42 Patient has correct armband on for positive identification. Call light in reach. Side ph rails up X 1. Pulse ox on. NIBP on. 16:42 Patient maintains SpO2 saturation greater than 95% on room air. ph 17:46 No provider procedures requiring assistance completed. IV discontinued, intact, ph bleeding controlled, No redness/swelling at site. Pressure dressing applied. Administered Medications: 17:43 Not Given (Other Intervention Used): morphineor iv 4 mg IVP once over 4 mins ph Medication: 16:42 VIS not applicable for this client. ph Outcome: 17:53 Discharge ordered by . ec2 17:58 Patient left the ED. ph Signatures: Dispatcher [employer] EDCA Janina Kc, RN RN ph Rubio Nevarez RN RN ll1 Charisse Hernandez, DIANDRA RN Jacqueline Cruz mg5 Cesar Webb MD MD ec2
--- NOTE | 2023-10-09 17:54 | EDPHYS ---
Physician Documentation [facility] Name: Tyrell Torres Age: 38 yrs Sex: Male : 1985 Arrival Date: 10/09/2023 Time: 14:32 Bed 19 Private MD: ED Physician Cesar Webb HPI: 10/08 15:07 This 38 yrs old Male presents to ER via Ambulatory with complaints of Chest ec2 Pain. 15:07 Patient arrives today for evaluation of left-sided chest pain, nonexertional, no ec2 specific alleviating or exacerbating factors.. Historical: - Allergies: 14:43 No Known Allergies; db - PMHx: 14:43 Anxiety; Hypertensive disorder; Asthma; db - PSHx: 14:43 Appendectomy; db - Immunization history:: Adult Immunizations unknown. - Infectious Disease History:: Denies. - Social history:: Smoking status: Patient denies any tobacco usage or history of. ROS: 15:07 Constitutional: as per hpi ec2 Exam: 15:07 Constitutional: GEN: NAD Head: atraumatic Eyes: EOMI Ears: External ears are ec2 normal. CV: regular rate LUNGS: no respiratory distress ABD: non-distended SKIN: no evidence of rashes MSK: no evidence of trauma Vital Signs: 14:41 BP 195 / 110; Pulse 81; Resp 18; Temp 98; Pulse Ox 99% on R/A; Weight 145.15 kg; Height db 6 ft. 0 in. ; 17:32 BP 153 / 91; ec2 17:43 BP 152 / 93; Pulse 68; Resp 18; Temp 97.9; Pulse Ox 99% on R/A; ph 14:41 Body Mass Index 43.40 (145.15 kg, 182.88 cm) db MDM: 15:07 Data reviewed: vital signs. ED course: Patient arrives today for chest pain. ec2 Examination remarkable for well-appearing hypertensive individual was otherwise in no acute distress with a reassuring examination. Will obtain lab work, EKG, chest x-ray. Differential clues ACS, doubt PE or dissection. Additionally considering costochondritis, esophagitis.. 15:08 ED course: EKG independently reviewed and interpreted by me, shows normal sinus rhythm, ec2 rate of 74, no acute ST segment elevations, intervals are nonconcerning. Right bundle kimberly block noted.. 15:21 Patient medically screened. ec2 16:49 ED course: Chest x-ray shows no acute intrathoracic process.. ec2 16:49 ED course: Lab work is nonactionable.. ec2 17:52 ED course: On reassessment patient well-appearing no acute distress. Will discharge ec2 home, have the patient follow-up with PCP.. 10/08 14:51 Order name: Basic Metabolic Panel; Complete Time: 15:40 ec2 10/08 14:51 Order name: CBC with Diff; Complete Time: 15:40 ec2 10/08 14:51 Order name: Troponin HS; Complete Time: 15:40 ec2 10/08 14:51 Order name: XRAY Chest (1 view); Complete Time: 16:49 ec2 10/08 14:51 Order name: Cardiac monitoring; Complete Time: 17:24 ec2 10/08 14:51 Order name: EKG - Nurse/Tech; Complete Time: 14:53 ec2 10/08 14:51 Order name: IV Saline Lock; Complete Time: 16:50 ec2 10/08 14:51 Order name: Labs collected and sent; Complete Time: 15:05 ec2 10/08 14:51 Order name: O2 Per Protocol; Complete Time: 16:50 ec2 10/08 14:51 Order name: O2 Sat Monitoring; Complete Time: 16:50 ec2 Administered Medications: 17:43 Not Given (Other Intervention Used): morphineor iv 4 mg IVP once over 4 mins ph Disposition Summary: 10/09/23 17:53 Discharge Ordered Notes: Location: Home ec2 Condition: Stable ec2 Diagnosis - Chest pain, unspecified ec2 Followup: ec2 - With: Private Physician - When: - Reason: Re-evaluation by your physician Discharge Instructions: - Discharge Summary Sheet ph - Nonspecific Chest Pain, Adult, [id number] ec2 Forms: - Work release form ph - Medication Reconciliation Form ec2 - Antibiotic Education ec2 - Prescription Opioid Use ec2 - Patient Portal Instructions ec2 - Leadership Thank You Letter ec2 Prescriptions: - Pepcid 20 mg Oral Tablet - take 1 tablet ORAL route every 12 hours for 10 days; 20 tablet; Refills: 0, ec2 Product Selection Permitted - Lisinopril 5 mg Oral tablet - take 1 tablet ORAL route once daily; 30 tablet; Refills: 0, Product Selection ec2 Permitted Signatures: Dispatcher [employer] Charisse Son RN RN db Cesar Webb MD MD ec2 Janina Kc RN ph Corrections: (The following items were deleted from the chart) 14:52 14:52 BASIC METABOLIC PANEL+C.LAB.BRZ ordered. EDMS EDMS 14: 14:52 CBC+H.LAB.BRZ ordered. EDMS EDMS 14 14:52 Troponin High Sensitivity+C.LAB.BRZ ordered. EDMS EDMS 14: 14:52 Chest Single View+RAD.RAD.BRZ ordered. EDMS EDMS
[2023-10-09 18:39] VITALS: O2SAT 99
[2023-10-09 18:41] VITALS: BP 152/93; TEMP 97.9
--- NOTE | 2023-10-10 16:59 | EKG ---
Test Date: 2023-10-09 Test Time: 14:51:14 Claim Taker: BALJINDER MEASUREMENT RESULTS: Intervals: Rate: 74 WA: 140 QRSD: 142 QT: 392 QTc: 435 [place]: P: 74 WA: 140 QRS: -7 T: 17 INTERPRETIVE STATEMENTS: Normal sinus rhythm Right bundle branch block Abnormal ECG Compared to ECG 04/28/2021 10:21:46 Right bundle-branch block now present Electronically Signed On 10-10-23 16:56:50 CDT by José Miguel Hutchinson
== END 2023-10-09 17:58 | disposition home or self-care (01) ==
LOC: ER 14:32
DX: R07.9 Chest pain, unspecified (principal); I10 Essential (primary) hypertension
CPT/HCPCS: 36415; 71045; 80048; 84484; 85025; 93005

== ENCOUNTER 2024-12-08 02:32 | Emergency (ER) | payer SELFPAY ==
[2024-12-08] MEDS ORDERED: AZITHROMYCIN 250 MG TAB ONE (03:28)
[2024-12-08] MEDS ORDERED: ALBUTEROL 2.5 MG/3 ML NEB SOL ONE (03:28)
[2024-12-08] MEDS ORDERED: DIPHENHYDRAMINE 25 MG TAB/CAP ONE (03:29)
[2024-12-08] MEDS ORDERED: BENZONATATE 100 MG CAP PO ONE (03:29)
[2024-12-08] MEDS ORDERED: GUAIFENESIN/DM 5 ML UCUP ONE (03:30)
--- NOTE | 2024-12-08 04:48 | ER ---
Nurse's Notes [facility] Name: Tyrell Torres Age: 39 yrs Sex: Male : 1985 Arrival Date: 12/08/2024 Time: 02:32 Bed 16 Private MD: Diagnosis: Cough;Acute laryngopharyngitis Presentation: 12/08 02:38 Chief complaint: Patient states: DRY PERSISTENT COUGH THAT MAKES ME FEEL SHORTNESS OF ha1 BREATH, NOSE CONGESTION. 02:38 Coronavirus screen: Client denies travel out of the [place] in the last 14 days. Ebola ha1 Screen: No symptoms or risks identified at this time. Initial Sepsis Screen: Does the patient meet any 2 criteria? No. Patient's initial sepsis screen is negative. Does the patient have a suspected source of infection? No. Patient's initial sepsis screen is negative. Risk Assessment: Do you want to hurt yourself or someone else? Patient reports no desire to harm self or others. Onset of symptoms was December 08, 2024. 02:38 Method Of Arrival: Ambulatory ha1 02:38 Acuity: JULIUS 3 ha1 Triage Assessment: 02:38 General: Appears uncomfortable, Behavior is cooperative. Neuro: Level of Consciousness ha1 is awake, alert, obeys commands, Oriented to person, place, time, situation. Cardiovascular: Patient's skin is warm and dry. Respiratory: Reports cough that is non-productive, dry, persistent Airway is patent Respiratory effort is even, unlabored, Respiratory pattern is regular, symmetrical. Historical: - Allergies: 02:38 No Known Allergies; ha1 - PMHx: 02:38 Anxiety; Asthma; Hypertensive disorder; ha1 - PSHx: 02:38 Appendectomy; ha1 - Immunization history:: Adult Immunizations not up to date. - Infectious Disease History:: Denies. - Social history:: Smoking status: Patient denies any tobacco usage or history of. - Family history:: not pertinent. Screenin:15 [facility] ED Fall Risk Assessment (Adult) History of falling in the last 3 months, af3 including since admission No falls in past 3 months (0 pts) Confusion or Disorientation No (0 pts) Intoxicated or Sedated No (0 pts) Impaired Gait No (0 pts) Mobility Assist Device Used No (0 pt) Altered Elimination No (0 pt) Score/Fall Risk Level 0 - 2 = Low Risk Oriented to surroundings, Maintained a safe environment, Educated pt \T\ family on fall prevention, incl call for assistance when getting out of bed. Abuse screen: Denies threats or abuse. Denies injuries from another. Nutritional screening: No deficits noted. Tuberculosis screening: No symptoms or risk factors identified. Assessment: 03:15 General: Appears in no apparent distress. comfortable, well groomed, well developed, af3 Behavior is calm, cooperative, appropriate for age. Pain: Denies pain. Neuro: Level of Consciousness is awake, alert, obeys commands, Oriented to person, place, time, situation, Appropriate for age. Cardiovascular: Patient's skin is warm and dry. Respiratory: Airway is patent Respiratory effort is even, unlabored, Respiratory pattern is regular, symmetrical. Derm: Skin is intact, Skin is pink, warm \T\ dry. normal. 04:30 Reassessment: Patient appears in no apparent distress at this time. Patient and/or af3 family updated on plan of care and expected duration. Pain level reassessed. Patient is alert, oriented x 3, equal unlabored respirations, skin warm/dry/pink. 05:11 Reassessment: Patient appears in no apparent distress at this time. Patient and/or af3 family updated on plan of care and expected duration. Pain level reassessed. Patient is alert, oriented x 3, equal unlabored respirations, skin warm/dry/pink. Vital Signs: 02:38 BP 131 / 86; Pulse 85; Resp 20 S; Temp 98.6(O); Pulse Ox 99% on R/A; Weight 161.03 kg; ha1 Height 6 ft. 0 in. ; 04:30 BP 141 / 86; Pulse 96; Resp 18; Pulse Ox 99% on R/A; af3 05:14 BP 143 / 82; Pulse 89; Resp 18; Pulse Ox 100% on R/A; af3 02:38 Body Mass Index 48.15 (161.03 kg, 182.88 cm) ha1 Juanis Coma Score: 12/09 00:53 Eye Response: spontaneous(4). Motor Response: obeys commands(6). Verbal Response: sp4 oriented(5). Total: 15. ED Course: 12/08 02:38 Patient arrived in ED. gm2 02:52 Phil Mantilla MD is Attending Physician. sp4 03:07 Triage completed. ha1 03:15 Patient has correct armband on for positive identification. Bed in low position. Call af3 light in reach. Provided Education on: plan of care . 03:15 No provider procedures requiring assistance completed. af3 03:23 Nicole Arguello RN is Primary Nurse. af3 03:35 Chest Pa And Lat (2 Views) XRAY In Process Unspecified. EDMS 05:22 Patient did not have IV access during this emergency room visit. af3 Administered Medications: 03:45 Drug: Albuterol Inhalation 2.5 mg Inhalation once Route: Inhalation; af3 04:15 Follow up: Response: No adverse reaction af3 03:45 Drug: Tessalon Perle PO 200 mg PO once Route: PO; af3 04:15 Follow up: Response: No adverse reaction af3 03:45 Drug: Dextromethorphan-Guaifenesin PO Liquid 10 mg-100 mg/5 mL 20 ml PO once Route: PO; af3 04:15 Follow up: Response: No adverse reaction af3 03:45 Drug: diphenhydrAMINE PO 25 mg PO once Route: PO; af3 04:15 Follow up: Response: No adverse reaction af3 03:45 Drug: AZITHromycin PO 500 mg PO once Route: PO; af3 04:15 Follow up: Response: No adverse reaction af3 Medication: 03:15 VIS not applicable for this client. af3 Outcome: 04:47 Discharge ordered by . sp4 05:21 Discharged to home ambulatory, af3 05:21 Condition: stable 05:21 Discharge instructions given to patient, Instructed on discharge instructions, follow up and referral plans. medication usage, Demonstrated understanding of instructions, follow-up care, medications, Prescriptions given X 5 05:22 Patient left the ED. af3 Signatures: Dispatcher [employer] EDND Virginia Bay RN RN ha1 Phil Mantilla MD MD sp4 Clare Roberts 2 Nicole Arguello RN RN af3
--- NOTE | 2024-12-08 04:48 | EDPHYS ---
Physician Documentation [facility] Name: Tyrell Torres Age: 39 yrs Sex: Male : 1985 Arrival Date: 12/08/2024 Time: 02:32 Bed 16 Private MD: ED Physician Phil Mantilla HPI: 12/08 02:52 This 39 yrs old Other Race Male presents to ER via Unassigned with complaints of Cough, sp4 Chest Congestion, Dizziness. 12/09 00:53 Patient presents with acute onset of cough chest congestion and sore throat. Reports sp4 moderate to severe cough which brought him here to the. Historical: - Allergies: 12/08 02:38 No Known Allergies; ha1 - PMHx: 02:38 Anxiety; Asthma; Hypertensive disorder; ha1 - PSHx: 02:38 Appendectomy; ha1 - Immunization history:: Adult Immunizations not up to date. - Infectious Disease History:: Denies. - Social history:: Smoking status: Patient denies any tobacco usage or history of. - Family history:: not pertinent. ROS: 12/09 00:53 Constitutional: Negative for fever, chills, and weight loss, positive cough sp4 congestion and sore throat All other systems are negative, Exam: 00:53 Constitutional: This is a well developed, well nourished patient who is awake, alert, sp4 and in no acute distress. Head/Face: Normocephalic, atraumatic. Eyes: Pupils equal round and reactive to light, extra-ocular motions intact. Lids and lashes normal. Conjunctiva and sclera are not injected. Cornea within normal limits. Periorbital areas with no swelling, redness, or edema. ENT: Nares patent. No nasal discharge, no septal abnormalities noted. Tympanic membranes are normal and external auditory canals are clear. Oropharynx with positive for bilateral redness tonsillar erythema without exudates. Positive for uvula redness and swelling. Neck: Trachea midline, no thyromegaly or masses palpated, and no cervical lymphadenopathy. Supple, full range of motion without nuchal rigidity, or vertebral point tenderness. Chest/axilla: Normal chest wall appearance and motion. Nontender with no deformity. No lesions are appreciated. Cardiovascular: Regular rate and rhythm with a normal S1 and S2. No gallops, murmurs, or rubs. No pulse deficits. Respiratory: Lungs have equal breath sounds bilaterally, clear to auscultation and percussion. No rales, rhonchi or wheezes noted. No increased work of breathing, no retractions or nasal flaring. Abdomen/GI: Soft, with normal bowel sounds. No distension or tympany. No guarding or rebound. No evidence of tenderness throughout. Back: No spinal tenderness. No costovertebral tenderness. Skin: Warm, dry with normal turgor. Normal color with no rashes, no lesions, and no evidence of cellulitis. MS/ Extremity: Pulses equal, no cyanosis. Neurovascular intact. Full, normal range of motion. Neuro: Awake and alert, GCS 15, oriented to person, place, time, and situation. Cranial nerves II-XII grossly intact. Motor strength 5/5 in all extremities. Sensory grossly intact. Psych: Awake, alert, with orientation to person, place and time. Behavior, mood, and affect are within normal limits Vital Signs: 12/08 02:38 BP 131 / 86; Pulse 85; Resp 20 S; Temp 98.6(O); Pulse Ox 99% on R/A; Weight 161.03 kg; ha1 Height 6 ft. 0 in. ; 04:30 BP 141 / 86; Pulse 96; Resp 18; Pulse Ox 99% on R/A; af3 05:14 BP 143 / 82; Pulse 89; Resp 18; Pulse Ox 100% on R/A; af3 02:38 Body Mass Index 48.15 (161.03 kg, 182.88 cm) ha1 Juanis Coma Score: 12/09 00:53 Eye Response: spontaneous(4). Motor Response: obeys commands(6). Verbal Response: sp4 oriented(5). Total: 15. MDM: 12/08 02:54 Medical Screening Exam initiated sp4 12/09 00:53 Differential Diagnosis: Bronchitis Influenza Upper Respiratory Infection Sinusitis sp4 Pharyngitis Otitis Media. Data reviewed: vital signs, nurses notes, radiologic studies, plain films. Consideration of Admission/Observation Escalation of care including admission/observation considered. 00:55 ED course: Chest x-ray is clear. Patient stable for discharge home with cough sp4 management. Also p.o. Zithromax. 12/08 02:54 Order name: Chest Pa And Lat (2 Views) XRAY; Complete Time: 00:54 sp4 Administered Medications: 12/08 03:45 Drug: Albuterol Inhalation 2.5 mg Inhalation once Route: Inhalation; af3 04:15 Follow up: Response: No adverse reaction af3 03:45 Drug: Tessalon Perle PO 200 mg PO once Route: PO; af3 04:15 Follow up: Response: No adverse reaction af3 03:45 Drug: Dextromethorphan-Guaifenesin PO Liquid 10 mg-100 mg/5 mL 20 ml PO once Route: PO; af3 04:15 Follow up: Response: No adverse reaction af3 03:45 Drug: diphenhydrAMINE PO 25 mg PO once Route: PO; af3 04:15 Follow up: Response: No adverse reaction af3 03:45 Drug: AZITHromycin PO 500 mg PO once Route: PO; af3 04:15 Follow up: Response: No adverse reaction af3 Disposition: 12/09 00:55 Chart complete. sp4 Disposition Summary: 12/08/24 04:47 Discharge Ordered Notes: Location: Home sp4 Problem: new sp4 Symptoms: have improved sp4 Condition: Stable sp4 Diagnosis - Cough sp4 - Acute laryngopharyngitis sp4 Followup: sp4 - With: Private Physician - When: 7 - 10 days - Reason: Recheck today's complaints Discharge Instructions: - Discharge Summary Sheet sp4 - Cough, Adult sp4 Forms: - Patient Portal Instructions sp4 - Work release form af3 Prescriptions: - dextromethorphan-guaifenesin 20-400 mg Oral tablet - take 1 tablet ORAL route every 6 hours as needed for cough; 60 tablet; Refills: sp4 0, Product Selection Permitted - Albuterol Sulfate 2.5 mg /3 mL (0.083 %) Inhalation Solution for Nebulization - inhale 1 unit NEBULIZATION route every 4 hours As needed PRN dyspnea, dispense sp4 50 respules or two boxes; 50 unit; Refills: 0, Product Selection Permitted - Zithromax Z-Bryan 250 mg Oral Tablet - take 1 tablet ORAL route as directed for 5 days Day 1 - take two (2) tablets sp4 one time. Day 2, 3, 4 , 5 take one (1) tablet once daily.; 6 tablet; Refills: 0, Product Selection Permitted - benzonatate 200 mg Oral capsule - take 1 capsule ORAL route every 6 hours as needed; 60 capsule; Refills: 0, sp4 Product Selection Permitted - promethazine 25 mg Oral tablet - take 1 tablet ORAL route every 6 hours As needed PRN nausea; 20 tablet; sp4 Refills: 0, Product Selection Permitted Signatures: Dispatcher [employer] Virginia Mckeon RN RN ha1 Phil Mantilla MD MD sp4 Nicole Arguello RN RN af3 Corrections: (The following items were deleted from the chart) 12/08 03:23 02:54 IV Saline Lock ordered. sp4 3 03: 02:54 Labs collected and sent ordered. sp4 af3
--- NOTE | 2024-12-08 04:49 | RAD REPORT ---
EXAM: XR Chest 2 Views AP PA Lateral HISTORY: congestion COMPARISON: Chest 1 View AP 04/28/2021 report without image TECHNIQUE: Chest 2 Views AP PA Lateral FINDINGS: Trachea midline. Heart size and pulmonary vessels within normal limits. Lungs clear without evidence of consolidation, mass, or significant pulmonary edema. No significant pleural effusion or pneumothorax. Bones unremarkable. IMPRESSION: Unremarkable chest radiograph. Electronically signed by: Mehdi Scales MD 12/08/2024 04:18 AM CDT RP Due to temporary technical issues with the PACS/[employer] reporting system, reports are being sony d by the in-house radiologist without review as a courtesy to ensure prompt reporting the interpreting radiologist is fully responsible for the content of the report. Transcribed Date/Time: 12/08/2024 4:49 AM
[2024-12-08 10:02] VITALS: TEMP 98.6
[2024-12-08 10:04] VITALS: BP 143/82; O2SAT 100
== END 2024-12-08 05:22 | disposition home or self-care (01) ==
LOC: ER 02:32
DX: R05.9 Cough, unspecified (principal); J06.0 Acute laryngopharyngitis
CPT/HCPCS: 71046; 99284; J7613